=== PATIENT | female | born 1995 | race American Indian/Alaskan Native ===

== ENCOUNTER 2016-09-28 11:18 | Emergency (ER) | payer MEDICAID ==
[2016-09-28 12:07] VITALS: BP 109/79
[2016-09-28 12:55] LABS: Basophils % (Auto) 0.6 % (0.0-1.8); Eosinophils % (Auto) 1.8 % (0.0-4.3); Hematocrit 36.8 % (30.3-42.9); Hemoglobin 12.6 gm/dl (10.1-14.3); Mean Corpuscular HGB Conc 34 % (30-34); Mean Corpuscular Hemoglobin 29 pg (28-32); Mean Corpuscular Volume 84 fl (79-97); Platelet Count 248 K/mm3 (140-440); Red Blood Count 4.38 M/mm3 (3.65-5.03); Red Cell Distribution Width 13.1 % (13.2-15.2); White Blood Count 8.5 K/mm3 (4.5-11.0)
[2016-09-28 13:13] LABS: Alanine Aminotransferase 11 units/L (7-56); Albumin 3.9 g/dL (3.9-5); Albumin/Globulin Ratio 1.4 %; Alkaline Phosphatase 60 units/L (35-129); Bilirubin,Total < 0.20 mg/dL (0.1-1.2); Blood Urea Nitrogen 7 mg/dL (7-17); Calcium 8.9 mg/dL (8.4-10.2); Carbon Dioxide 24 mmol/L (22-30); Glucose 82 mg/dL (65-100); Total Protein 6.7 g/dL (6.3-8.2)
[2016-09-28 13:14] LABS: Anion Gap 15 mmol/L; Potassium 4.1 mmol/L (3.6-5.0); Sodium 138 mmol/L (137-145)
--- NOTE | 2016-10-01 11:31 | ED Elopement Review ---
ED Pt Elopement review - Results review Lab results: Laboratory Tests 09/28/16 09/28/16 09/28/16 12:37 12:37 12:37 WBC 8.5 RBC 4.38 Hgb 12.6 Hct 36.8 MCV 84 MCH 29 MCHC 34 RDW 13.1 L Plt Count 248 Lymph % (Auto) 15.8 [place] % (Auto) 7.2 Eos % (Auto) 1.8 Baso % (Auto) 0.6 Lymph # 1.4 [place] # 0.6 Eos # 0.2 Baso # 0.1 Seg Neutrophils % 74.6 H Seg Neutrophils # 6.4 Sodium 138 Potassium 4.1 Chloride 103.0 Carbon Dioxide 24 Anion Gap 15 BUN 7 Creatinine 0.4 L Estimated GFR > 60 BUN/Creatinine Ratio 17.50 Glucose 82 Calcium 8.9 Total Bilirubin < 0.20 AST 13 ALT 11 Alkaline Phosphatase 60 Total Protein 6.7 Albumin 3.9 Albumin/Globulin Ratio 1.4 HCG, Quant [id number] H - Call Back decision Pt Call Back Decision: No action required
== END 2016-09-28 13:45 | disposition left against medical advice (07) ==
LOC: ED 11:18
DX: O46.91 Antepartum hemorrhage, unspecified, first trimester (principal); Z53.21 Procedure and treatment not carried out due to patient leaving prior to being seen by health care provider
CPT/HCPCS: 36415; 80053; 84702; 85025

== ENCOUNTER 2016-10-12 12:57 | Emergency (ER) | payer MEDICAID ==
[2016-10-12 13:21] VITALS: BP 122/71
--- NOTE | 2016-10-12 14:57 | Emergency Department Report ---
HPI - General Chief Complaint: Urogenital-Female Time Seen by Provider: 10/12/16 14:10 - HPI HPI: Patient is a 21-year-old with 7 gestation at 12 weeks 6 days percent last menstrual period of . Patient is followed by Dr. Ha for care. Patient states on Monday she felt like her cervix was dilated because she did a vaginal exam on herself. Patient states she called her OB office today and shared her concerns of thinking she might have a dilated cervix and was told to come to the ER for evaluation. Patient denies fever abdominal pain or cramping, vaginal bleeding, vaginal discharge, vaginal pain, or pain with urination or any other symptoms ED Past Medical Hx - Past Medical History Previous Medical History?: Yes Additional medical history: vaginal delivery 05-28-2015 - Surgical History Past Surgical History?: Yes Additional Surgical History: oral - Social History Smoking Status: Former Smoker Substance Use Type: Alcohol, Prescribed ED Review of Systems ROS: Stated complaint: INCOMPETENT CERVIX Other details as noted in HPI Constitutional: denies: chills, fever Eyes: denies: eye pain, eye discharge, vision change ENT: denies: ear pain, throat pain Respiratory: denies: cough, shortness of breath, wheezing Cardiovascular: denies: chest pain, palpitations Endocrine: no symptoms reported Gastrointestinal: denies: abdominal pain, nausea, diarrhea Genitourinary: denies: urgency, dysuria, discharge Musculoskeletal: denies: back pain, joint swelling, arthralgia Skin: denies: rash, lesions Neurological: denies: headache, weakness, paresthesias Psychiatric: denies: anxiety, depression Hematological/Lymphatic: denies: easy bleeding, easy bruising Physical Exam - Physical Exam Vital Signs: Vital Signs 10/12/16 13:17 Temperature 99 F Pulse Rate 87 Respiratory 20 Rate Blood Pressure 122/71 O2 Sat by Pulse 100 Oximetry Physical Exam: GENERAL: Alert and oriented x3, no apparent distress, Normal Gait, atraumatic. HEAD: Head is normocephalic and a-traumatic. EYES: Extra ocular muscles are intact. Pupils are equal, round, and reactive to light and accommodation. LUNGS: Symetrical with respiration, No wheezing, no rales or crackles, CTAB. HEART: S1, S2 present, regular rate and rhythm without murmur, no rubs, no gallops. Non tender to palpation ABDOMEN: No organomegaly was noted,Positive bowel sounds, soft, and non- distended. . Nontender to palpation on all Quadrants, NO CVA tenderness. GENITOURINARY: External genitalia without erythema, exudate or discharge. Vaginal vault is without discharge. Cervix is of normal color without lesion. Cervical os is closed. No bleeding noted. Uterus is noted to be of normal size and nontender. No cervical motion tenderness. No masses are palpated. The adnexa are without masses or tenderness. SKIN: Warm and dry, No lesions, No ulceration or induration present. ED Course Vital Signs 10/12/16 13:17 Temperature 99 F Pulse Rate 87 Respiratory 20 Rate Blood Pressure 122/71 O2 Sat by Pulse 100 Oximetry ED Medical Decision Making - Medical Decision Making 21-year-old female presents to ED at 12.6 weeks gestation ED course: Normal physical findings. Discussed the patient to follow up with [facility]. Patient states she is not having any abdominal pain or bleeding. She states she had an ultrasound last week. I visualized the picture of the ultrasound Vital signs are normal patient has no acute distress She is alert and oriented 3 understands instructions Critical care attestation.: If time is entered above; I have spent that time in minutes in the direct care of this critically ill patient, excluding procedure time. ED Disposition Clinical Impression: Normal in first trimester Disposition: DC-01 TO HOME OR SELFCARE Is pt being admited?: No Does the pt Need Aspirin: No Condition: Stable Instructions: (ED) Referrals: PRIMARY CAREMD [Primary Care Provider] - 3-5 Days JULISSA MIRELES MD [Staff Physician] - 3-5 Days WIN ORELLANA MD [Referring] - 3-5 Days CHIQUIS ORELLANA MD [Referring] - 3-5 Days Forms: Work/School Release Form(ED) Time of Disposition: 04:00
[2016-10-12] MEDS ORDERED: TYLENOL PO ONE (16:07)
== END 2016-10-12 17:41 | disposition home or self-care (01) ==
LOC: ED 12:57
DX: O26.891 Other specified pregnancy related conditions, first trimester (principal); N94.89 Other specified conditions associated with female genital organs and menstrual cycle; Z3A.12 12 weeks gestation of pregnancy
CPT/HCPCS: 36415; 84702; 84703; 99283